=== PATIENT | female | born 1955 | race Caucasian/White ===

== ENCOUNTER 2019-11-18 05:16 | Outpatient (CLI) | payer OTHER ==
[2019-11-18 09:54] LABS: PTT 41.1 SEC (22.9-36.1); Prothrombin Time 30.8 SEC (12.0-14.7)
[2019-11-18 10:10] LABS: Anion Gap 16 mmol/L (10-20); BUN (Urea Nitrogen) 7 mg/dL (9.8-20.1); Calc. Creatinine Clearance 0 mL/min (70-130); Calcium 9.1 mg/dL (7.8-10.44); Carbon Dioxide 23 mmol/L (23-31); Chloride 106 mmol/L (98-107); Estimated GFR-MDRD 75; Glucose 97 mg/dL (80-115); Potassium 4.5 mmol/L (3.5-5.1); Sodium 140 mmol/L (136-145)
[2019-11-18 10:14] LABS: Hemoglobin 13.7 g/dL (12.0-16.0); Mean Corpuscular HGB CONC 32.2 g/dL (32.0-36.0); Mean Corpuscular Hemoglobin 30.2 pg (27.0-31.0); Mean Corpuscular Volume 93.7 fL (78.0-98.0); Mean Platelet Volume 7.6 fL (7.4-10.4); Platelet Count 224 thou/uL (130-400); RBC Distribution Width 13.2 % (11.5-14.5); Red Blood Cell (RBC) Count 4.53 mill/uL (4.20-5.40); White Blood Cell (WBC) Count 4.6 thou/uL (4.8-10.8)
== END 2019-11-18 05:17 | disposition home or self-care (01) ==
LOC: LABBT 05:16
PROVIDERS: ATTEND Internal Medicine Cardiovascular Disease
DX: Z01.812 Encounter for preprocedural laboratory examination (principal); I48.91 Unspecified atrial fibrillation
CPT/HCPCS: 80048; 85027; 85610; 85730

== ENCOUNTER 2019-11-21 07:44 | Day surgery (SDC) | payer OTHER ==
[2019-11-18 09:09] VITALS: BMI 32.8
[2019-11-21] MEDS ORDERED: PROPOFOL 40 ML ONE (09:22)
--- NOTE | 2019-11-21 11:36 | OP ---
DATE OF PROCEDURE: 11/21/2019 PROCEDURE PERFORMED: Cardioversion. INDICATIONS FOR PROCEDURE: Ms. Ma is a 64-year-old woman who was accidentally found in atrial fibrillation during a colonoscopy procedure. She had mild lower pulse reading, possibly due to pulse deficit with atrial fibrillation at that time. She underwent a ALYSSA today. No strain. No intracardiac clots. Here for cardioversion. She is on chronic anticoagulation for history of lupus anticoagulant. DESCRIPTION OF PROCEDURE: The patient received propofol by anesthesia specialist. After adequate level of sedation achieved, a synchronized 150-joule failed to convert the patient back to sinus rhythm. A 2nd 300-joule shock converted the patient back to sinus rhythm, but frequent PACs, re-initiated atrial fibrillation. CONCLUSION: Early recurrence of atrial fibrillation post cardioversion. PLAN: Continue warfarin for anticoagulation. Consider antiarrhythmic agents versus ablation approach for maintenance of sinus rhythm. Job ID: [id number]
--- NOTE | 2019-11-22 17:19 | ECHO ---
DATE OF SERVICE: 11/21/19 REFERRING PHYSICIAN: Dr. Swan REASON FOR PROCEDURE: The patient is a 63-year-old female with history of newly found atrial fibrillation in September 2019 of ----- duration. She has been on anticoagulation with Warfarin. She underwent a ALYSSA and ------ INR levels to rule out intracardiac clot as well as evaluate cardiac function. PROCEDURE: The patient received propofol by Anesthesia specialist. After adequate level of sedation achieved, a standard transesophageal echocardiogram probe was passed into the esophagus without diff iculty. Patient tolerated the procedure well, no complications noted. RESULTS: Left atrium is moderately enlarged about 5.1 cm in horizontal diameter. The left atrial appendage we ll visualized contains no clots. The left ventricular appendage velocities up to 50 cm per second, wh ich is adequate. Four out of four pulmonary veins were seen. The mitral valve has mild regurgitatio n. The left ventricular systolic function is near normal, about 50%. Mild mid anterior to apical hy pokinesis is suggested by wall motion. The right sided chambers are nondilated. The interatrial and i nterventricular septum is free of defect. The aortic valve has three leaflets trivial regurgitation o nly and no stenosis. Tricuspid valve has mild regurgitation with peak TR velocities of 1.5 m/s. Peric ardial space without effusion. The visualized portion of ascending and descending aorta with minor a theroma in the descending portion. No aneurysm or dissection is seen. CONCLUSION: 1. No intracardiac clots. 2. Near normal LV systolic function but possible inter wall motion abnormality seen with EF of about 50% noted. 3. Mild mitral and tricuspid regurgitation. 4. Moderate left atrial enlargement seen. PLAN: Proceed with cardioversion.
== END 2019-11-21 11:24 | disposition home or self-care (01) ==
LOC: CCL 07:44
PROVIDERS: ATTEND Internal Medicine Cardiovascular Disease
PROC: 5A2204Z Restoration of Cardiac Rhythm, Single (ICD-10-PCS; principal; 2019-11-21)
PROC: B24BZZ4 Ultrasonography of Heart with Aorta, Transesophageal (ICD-10-PCS; principal; 2019-11-21)
DX: I48.19 Other persistent atrial fibrillation (principal); I82.409 Acute embolism and thrombosis of unspecified deep veins of unspecified lower extremity; Z79.01 Long term (current) use of anticoagulants; Z79.899 Other long term (current) drug therapy; Z88.2 Allergy status to sulfonamides
CPT/HCPCS: 92960; 93005; 93010; 93312; J2704

== ENCOUNTER 2019-12-27 07:31 | Outpatient (CLI) | payer OTHER ==
--- NOTE | 2019-12-27 10:01 | NM ---
EXAM: Cardiac SPECT HISTORY: Atrial fibrillation PROTOCOL: Stress only, single isotope TYPE OF STRESS: Pharmacologic stress with Lexiscan was monitored and interpreted by nurse galo Toribio RADIOPHARMACEUTICAL: 30 mCi technetium 99m-sestamibi injected intravenously FINDINGS: Homogeneous tracer distribution is seen in the myocardial segments on the post stress images. The CT scan images used for attenuation correction demonstrate a 7 cm low-density mass in the right lobe of the liver. Gated SPECT LVEF: 48% Wall motion exam: No significant segmental wall motion abnormalities are seen. IMPRESSION: Normal post stress myocardial perfusion scan. RECOMMENDATION: Right upper quadrant ultrasound is recommended to evaluate the liver finding.
[2019-12-27] MEDS ORDERED: Regadenoson 0.4 MG/5 ML SYRINGE ONE (16:12)
--- NOTE | 2019-12-30 13:11 | STRESS ---
Acquisition Time: 2019-12-27 08:39:59 Total Exercise Time: 00:01:00 Test Indications: A-FIB Medications: Protocol: LEXISCAN Max HR: 123 BPM 77% of Pred: 158 BPM Max BP: 120/064 mmHG Max Work Load: 1.0 METS RESTING ECG: ATRIAL FIBRILLATION AT 97 BPM WITH LEFT AXIS DEVIATION AND LEFT ANTERIOR FASCICULAR BLOCK SYMPTOMS: DYSPNEA NORMAL BP RESPONSE ECTOPY: NONE ECG STRESS: NO SIGNIFICANT CHANGES INTERPRETATION: NEGATIVE ECG/AWAIT NUCLEAR IMAGES FOR DEFINITIVE DIAGNOSIS Confirmed by YASHIRA OLSON ([id number]), sound editor NOAH TERRAZAS ([id number]) on 12/30/2019 1:11:08 PM Referred By: MD Hemal DIAZ Confirmed By:YASHIRA OLSON
== END 2019-12-27 07:32 | disposition home or self-care (01) ==
LOC: NM 07:31
PROVIDERS: ATTEND Internal Medicine Cardiovascular Disease
DX: I48.0 Paroxysmal atrial fibrillation (principal)
CPT/HCPCS: 78452; 93017; A9500; J2785

== ENCOUNTER 2022-11-26 10:09 | Outpatient (CLI) | payer OTHER | END 2022-11-26 10:10 | disposition home or self-care (01) | LOC: MRI 10:09 | PROVIDERS: ATTEND Orthopaedic Surgery | DX: M25.512 Pain in left shoulder (principal); S43.432A Superior glenoid labrum lesion of left shoulder, initial encounter ==

== ENCOUNTER 2022-12-21 21:45 | Emergency (ER) | payer OTHER | END 2022-12-21 22:55 | disposition home or self-care (01) | LOC: ERS 21:45 | DX: R04.0 Epistaxis (principal) | CPT/HCPCS: 99283 ==

== ENCOUNTER 2023-02-11 14:57 | Inpatient (IN) | payer OTHER ==
[2023-02-11] MEDS ORDERED: fentaNYL 50 mcg/mL 1 mL Vial ONE ×2 (15:45→18:18)
[2023-02-11 17:14] LABS: #Monocytes 0.7 thou/uL (0.11-0.59); #Neutrophils 10.7 thou/uL (1.40-6.50); %Basophils 0.3 % (0.0-1.0); %Eosinophils 0.4 % (0.0-10.0); %Lymphocytes 7.8 % (21.0-51.0); %Monocytes 5.8 % (0.0-10.0); %Neutrophils 85.7 % (42.0-75.0); Hemoglobin 13.1 g/dL (12.0-16.0); Mean Corpuscular HGB CONC 34.2 g/dL (32.0-36.0); Mean Corpuscular Hemoglobin 31.9 pg (27.0-31.0); Mean Corpuscular Volume 93.2 fl (78.0-98.0); Mean Platelet Volume 7.5 fL (7.4-10.4); Platelet Count 198 10x3/uL (130-400); RBC Distribution Width 13.5 % (11.5-14.5); White Blood Cell (WBC) Count 12.5 10x3/uL (4.8-10.8)
[2023-02-11 17:25] LABS: INR-International Normal Ratio 2.8; PTT 36.9 sec (22.9-36.1); Prothrombin Time 30.9 sec (12.0-14.7)
[2023-02-11 17:31] LABS: Troponin I Less than 0.010 ng/mL (< 0.028)
[2023-02-11 18:14] LABS: ALT (SGPT) 11 U/L (8-55); AST (SGOT) 21 U/L (5-34); Albumin 3.9 g/dL (3.4-4.8); Alkaline Phosphatase 81 U/L (40-110); Anion Gap 15 mmol/L (10-20); BUN (Urea Nitrogen) 12 mg/dL (9.8-20.1); Bilirubin, Total 0.5 mg/dL (0.2-1.2); Calc. Creatinine Clearance 0 mL/min (70-130); Calcium 8.8 mg/dL (7.8-10.44); Carbon Dioxide 19 mmol/L (23-31); Chloride 108 mmol/L (98-107); Estimated GFR 90; Globulin 2.9 g/dL (2.4-3.5); Glucose 108 mg/dL (80-115); Potassium 3.6 mmol/L (3.5-5.1); Protein, Total 6.8 g/dL (5.8-8.1); Sodium 138 mmol/L (136-145)
[2023-02-11] MEDS ORDERED: Ondansetron PF 4 MG/2 ML Vial IVP PRN (20:00)
[2023-02-11] MEDS ORDERED: Ondansetron ODT 4 MG TAB PO PRN (20:00)
[2023-02-11] MEDS ORDERED: Calcium Carbonate 500 MG ChewTAB PO PRN (20:00)
[2023-02-11] MEDS ORDERED: Acetaminophen 325 MG TAB PO PRN (20:00)
[2023-02-11 20:29] VITALS: BMI 33.0
[2023-02-11] MEDS ORDERED: Sodium Chloride Nasal 15 GM TUBE EA NARE PRN (21:48)
[2023-02-11] MEDS: HYDROcodone/Acetaminophen 5/325 mg Tablet PO PRN (22:26)
[2023-02-12 04:34] LABS: #Lymphocytes 1.2 thou/uL (1.20-3.40); #Monocytes 0.6 thou/uL (0.11-0.59); %Basophils 0.3 % (0.0-1.0); %Eosinophils 0.4 % (0.0-10.0); %Lymphocytes 17.2 % (21.0-51.0); %Monocytes 9.4 % (0.0-10.0); %Neutrophils 72.7 % (42.0-75.0); Hemoglobin 12.5 g/dL (12.0-16.0); Mean Corpuscular HGB CONC 33.9 g/dL (32.0-36.0); Mean Corpuscular Hemoglobin 31.6 pg (27.0-31.0); Mean Corpuscular Volume 93.5 fl (78.0-98.0); Mean Platelet Volume 7.2 fL (7.4-10.4); Platelet Count 206 10x3/uL (130-400); RBC Distribution Width 13.3 % (11.5-14.5); Red Blood Cell (RBC) Count 3.94 mill/uL (4.20-5.40); White Blood Cell (WBC) Count 6.8 10x3/uL (4.8-10.8)
[2023-02-12 04:53] LABS: Anion Gap 12 mmol/L (10-20); BUN (Urea Nitrogen) 9 mg/dL (9.8-20.1); Calc. Creatinine Clearance 120 mL/min (70-130); Calcium 8.8 mg/dL (7.8-10.44); Carbon Dioxide 23 mmol/L (23-31); Chloride 106 mmol/L (98-107); Estimated GFR 96; Glucose 102 mg/dL (80-115); Magnesium 1.8 mg/dL (1.6-2.6); Potassium 3.6 mmol/L (3.5-5.1); Sodium 137 mmol/L (136-145)
[2023-02-12] MEDS: HYDROcodone/Acetaminophen 5/325 mg Tablet PO PRN ×3 (04:59→20:13)
[2023-02-12] MEDS: Loratadine 10 MG TAB PO SCH (09:02)
[2023-02-12] MEDS ORDERED: Cyclobenzaprine 10 MG TAB PO PRN (12:34)
[2023-02-12] MEDS ORDERED: Heparin 10,000 UNITS/ 10 ML VIAL ONE (14:59)
[2023-02-12] MEDS ORDERED: Lidocaine 1% (PF) 30 ML VIAL ONE (15:00)
[2023-02-12] MEDS ORDERED: Isoproterenol 0.2 MG/1 ML AMP ONE (15:05)
[2023-02-12] MEDS ORDERED: Midazolam HCl 2 mg/2 ml Vial ONE (15:22)
[2023-02-12] MEDS ORDERED: fentaNYL 50 mcg/mL 1 mL Vial ONE (15:22)
[2023-02-12] MEDS ORDERED: Warfarin Sodium 5 MG TAB PO SCH (17:00)
[2023-02-13] MEDS: HYDROcodone/Acetaminophen 5/325 mg Tablet PO PRN ×4 (03:04→19:18)
[2023-02-13 05:00] LABS: #Eosinphils 0.1 thou/uL (0.0-0.7); #Lymphocytes 0.8 thou/uL (1.20-3.40); #Monocytes 0.6 thou/uL (0.11-0.59); #Neutrophils 5.3 thou/uL (1.40-6.50); %Basophils 0.7 % (0.0-1.0); %Eosinophils 1.4 % (0.0-10.0); %Lymphocytes 11.1 % (21.0-51.0); %Monocytes 8.7 % (0.0-10.0); %Neutrophils 78.1 % (42.0-75.0); Hemoglobin 12.3 g/dL (12.0-16.0); Mean Corpuscular HGB CONC 30.7 g/dL (32.0-36.0); Mean Corpuscular Hemoglobin 28.8 pg (27.0-31.0); Mean Corpuscular Volume 93.9 fl (78.0-98.0); Mean Platelet Volume 7.3 fL (7.4-10.4); Platelet Count 197 10x3/uL (130-400); RBC Distribution Width 13.5 % (11.5-14.5); Red Blood Cell (RBC) Count 4.28 mill/uL (4.20-5.40); White Blood Cell (WBC) Count 6.8 10x3/uL (4.8-10.8)
[2023-02-13 05:07] LABS: INR-International Normal Ratio 3.4; Prothrombin Time 36.1 sec (12.0-14.7)
[2023-02-13 05:13] LABS: Anion Gap 13 mmol/L (10-20); BUN (Urea Nitrogen) 7 mg/dL (9.8-20.1); Calc. Creatinine Clearance 125 mL/min (70-130); Calcium 8.9 mg/dL (7.8-10.44); Carbon Dioxide 23 mmol/L (23-31); Chloride 106 mmol/L (98-107); Estimated GFR 97; Glucose 104 mg/dL (80-115); Potassium 3.6 mmol/L (3.5-5.1); Sodium 138 mmol/L (136-145)
[2023-02-13 07:05] LABS: Cardiac Risk 2.5 (Less than 4.5)
[2023-02-13] MEDS: Loratadine 10 MG TAB PO SCH (08:02)
[2023-02-14] MEDS: HYDROcodone/Acetaminophen 5/325 mg Tablet PO PRN ×4 (00:11→13:48)
[2023-02-14 04:45] LABS: #Eosinphils 0.2 thou/uL (0.0-0.7); #Lymphocytes 1.5 thou/uL (1.20-3.40); #Monocytes 0.8 thou/uL (0.11-0.59); #Neutrophils 4.4 thou/uL (1.40-6.50); %Basophils 0.3 % (0.0-1.0); %Eosinophils 2.6 % (0.0-10.0); %Lymphocytes 21.3 % (21.0-51.0); %Monocytes 11.8 % (0.0-10.0); Hemoglobin 12.8 g/dL (12.0-16.0); Mean Corpuscular HGB CONC 33.1 g/dL (32.0-36.0); Mean Corpuscular Hemoglobin 31.2 pg (27.0-31.0); Mean Corpuscular Volume 94.3 fl (78.0-98.0); Mean Platelet Volume 7.6 fL (7.4-10.4); Platelet Count 195 10x3/uL (130-400); RBC Distribution Width 13.3 % (11.5-14.5); Red Blood Cell (RBC) Count 4.11 mill/uL (4.20-5.40); White Blood Cell (WBC) Count 6.9 10x3/uL (4.8-10.8)
[2023-02-14 04:50] LABS: INR-International Normal Ratio 3.2
[2023-02-14 05:04] LABS: Anion Gap 13 mmol/L (10-20); BUN (Urea Nitrogen) 13 mg/dL (9.8-20.1); Calc. Creatinine Clearance 123 mL/min (70-130); Calcium 8.9 mg/dL (7.8-10.44); Carbon Dioxide 24 mmol/L (23-31); Chloride 105 mmol/L (98-107); Estimated GFR 97; Glucose 100 mg/dL (80-115); Potassium 3.9 mmol/L (3.5-5.1); Sodium 138 mmol/L (136-145)
[2023-02-14] MEDS: Loratadine 10 MG TAB PO SCH (09:03)
[2023-02-14 12:56] VITALS: BP 136/78; TEMP 97.9
[2023-02-14] MEDS ORDERED: HYDROcodone/Acetaminophen 5/325 mg Tablet PO PRN (14:05)
[2023-02-14] MEDS ORDERED: Warfarin Sodium 3 MG TAB PO SCH (17:00)
[2023-02-15] MEDS ORDERED: Warfarin Sodium 2 MG TAB PO SCH (17:00)
== END 2023-02-14 14:15 | disposition home or self-care (01) | DRG 274 ==
LOC: ERS 14:57 → 2NO 18:52
PROVIDERS: ADMIT Internal Medicine; ATTEND Internal Medicine
PROC: 4A023FZ Measurement of Cardiac Rhythm, Percutaneous Approach (ICD-10-PCS; principal; 2023-02-12)
PROC: 4A0234Z Measurement of Cardiac Electrical Activity, Percutaneous Approach (ICD-10-PCS; 2023-02-12)
PROC: 0JH632Z Insertion of Monitoring Device into Chest Subcutaneous Tissue and Fascia, Percutaneous Approach (ICD-10-PCS; 2023-02-13)
DX: R55 Syncope and collapse (principal); S22.31XA Fracture of one rib, right side, initial encounter for closed fracture; I48.20 Chronic atrial fibrillation, unspecified; Z86.718 Personal history of other venous thrombosis and embolism; V49.9XXA Car occupant (driver) (passenger) injured in unspecified traffic accident, initial encounter; Z88.2 Allergy status to sulfonamides; Z79.01 Long term (current) use of anticoagulants; Z79.899 Other long term (current) drug therapy; Z87.891 Personal history of nicotine dependence; Z82.3 Family history of stroke; Z83.3 Family history of diabetes mellitus; E66.9 Obesity, unspecified; Z68.33 Body mass index [BMI] 33.0-33.9, adult
CPT/HCPCS: 33285; 36415; 36416; 70450; 71045; 71275; 72125; 72170; 74177; 80048; 80053; 80061; 83735; 84443; 84484; 85025; 85610; 85730; 93005; 93306; 93620; 93623; 93880; 94760; 96374; 96376; 99152; 99153; C1760; C1764; C1769; C1894; G0390; J1644; J2001; J2250; J3010

== ENCOUNTER → 2023-08-19 | Day surgery (SDC) | payer OTHER ==
[2023-08-17 11:37] VITALS: BMI 31.4
[2023-08-17 12:37] LABS: Hematocrit 42.8 % (34.9-44.5); Hemoglobin 13.9 g/dL (12.0-15.5); Mean Corpuscular HGB CONC 32.5 g/dL (32.0-36.0); Mean Corpuscular Hemoglobin 29.8 pg (27.0-33.0); Mean Corpuscular Volume 91.6 fl (81.6-98.3); Platelet Count 253 10x3/uL (150-450); RBC Distribution Width 14.1 % (11.5-14.5); Red Blood Cell (RBC) Count 4.67 10x6/uL (3.90-5.03); White Blood Cell (WBC) Count 5.3 10x3/uL (3.5-10.5)
[2023-08-17 12:42] LABS: Anion Gap 15 mmol/L (10-20); BUN (Urea Nitrogen) 9 mg/dL (9.8-20.1); Calc. Creatinine Clearance 102 mL/min (70-130); Calcium 9.6 mg/dL (7.8-10.44); Carbon Dioxide 26 mmol/L (23-31); Chloride 106 mmol/L (98-107); Estimated GFR 86; Glucose 90 mg/dL (80-115); Sodium 143 mmol/L (136-145)
[2023-08-17 12:47] LABS: INR-International Normal Ratio 2.1; PTT 37.9 sec (22.0-33.0); Prothrombin Time 22.7 sec (9.5-12.1)
[~2023-08-19] MED LIST: CEFAZOLIN 2 GM VIAL ONE; Heparin 10,000 UNITS/ 10 ML VIAL ONE; Iopamidol 370 76% 100 ML VIAL ONE; Lidocaine 1% (PF) 30 ML VIAL ONE; Lidocaine 1% PF 5 ML VIAL ONE; Ondansetron PF 4 MG/2 ML Vial ONE; PHENYLEPHRINE-NS 100 MCG/ML 10 ML SYRINGE ONE; PROPOFOL 200 MG/20 ML VIAL ONE; Protamine Sulfate 50 MG/5 ML VIAL ONE; fentaNYL 50 mcg/mL 1 mL Vial ONE
[2023-08-19 07:42] LABS: INR-International Normal Ratio 1.9; Prothrombin Time 22.8 sec (12.0-14.7)
== END ==
LOC: SDC 05:50
PROVIDERS: ATTEND Internal Medicine Cardiovascular Disease
PROC: 02HK3NZ Insertion of Intracardiac Pacemaker into Right Ventricle, Percutaneous Approach (ICD-10-PCS; principal; 2023-08-19)
DX: I48.19 Other persistent atrial fibrillation (principal); R00.1 Bradycardia, unspecified; R55 Syncope and collapse; D68.62 Lupus anticoagulant syndrome; Z98.890 Other specified postprocedural states; Z88.2 Allergy status to sulfonamides; Z79.01 Long term (current) use of anticoagulants; Z86.718 Personal history of other venous thrombosis and embolism; Z95.818 Presence of other cardiac implants and grafts
CPT/HCPCS: 36415; 71045; 80048; 85027; 85610; 85730; 86850; 86900; 86901; C1760; C1769; C1894; J1644; J2001; J2405; J2704; J2720; J3010; Q9967